=== PATIENT | female | born 1935 | race Caucasian/White ===

== ENCOUNTER 2020-03-22 14:26 | Inpatient (IN) | payer MEDICAID, MEDICARE, SELFPAY ==
[~2020-03-22] VITALS: Ht 167.6 cm; Wt 49.0 kg
[2020-03-22 14:31] VITALS: BP_SYST 105
[2020-03-22] MEDS ORDERED: NACL 0.9% 1,000 ML IV ONE ×2 (15:00→17:15)
[2020-03-22] MEDS ORDERED: AMIODARONE HCL 150 MG in D5W 97 ML IV ONE (15:00)
--- NOTE | 2020-03-22 15:00 | NUR ---
PATIENT TO ER #8 NEGATIVE PRESSURE ROOM AND ISOLATION
[2020-03-22] MEDS ORDERED: AMIODARONE HCL 150 MG/3ML VIAL ONE (15:27)
--- NOTE | 2020-03-22 15:28 | NUR ---
PATIENT TO ER #6 ON MENTAL HEALTH ASSOCIATE, SAO2, ABP; IV LINE #1 #22, RIGHT HAND, IV LINE #2 #20 LAC; RESTRAINTS APPLIED PATIENT WAS UNCOOPERATIVE WITH CARE, (PULLING IV LINE AND REMOVING MASK)
--- NOTE | 2020-03-22 15:31 | NUR ---
PATIENT PRESENTS TO THE ER WITH HX OF INCREASED CONFUSION, LOWER SAO2 AND COUGH TODAY; NO TRAUMA, NO OTHER REMARKABLE S/S; PATIENT HAS TESTED POSITIVE FOR COVID-19
[2020-03-22] MEDS ORDERED: AMIODARONE HCL 900 MG in D5W 482 ML IV ONE (15:45)
--- NOTE | 2020-03-22 15:50 | NUR ---
REASSESSMENT; HR REMAINS ELEVATED AFTER INFUSION; ERMD ADVISED; PATIENT OTHERWISE UNCHANGED
[2020-03-22] MEDS ORDERED: DILTIAZEM HCL 25 MG/5 ML VIAL IVP ONE (16:00)
--- NOTE | 2020-03-22 16:03 | NUR ---
MARGINAL IMPROVEMENT IN HR POST CARTIZEM, ERMAzalea ADVISED
[2020-03-22 16:13] LABS: BASOPHILS % (AUTO) 0.4 % (0.0-2.0); HEMATOCRIT 38.1 % (36-48); HEMOGLOBIN 12.3 g/dL (12.0-16.0); LYMPHOCYTES # (AUTO) 0.8 K/uL (1.0-5.5); LYMPHOCYTES % (AUTO) 6.2 % (20.5-51.5); MEAN CORPUSCULAR HEMOGLOBIN 32 pg (27-31); MEAN CORPUSCULAR HGB CONC 32 % (32-36); MEAN CORPUSCULAR VOLUME 100 fL (79.0-98.0); MONOCYTES # (AUTO) 0.9 K/uL (0.0-1.0); MONOCYTES % (AUTO) 6.6 % (1.7-9.3); NEUTROPHILS # (AUTO) 11.7 K/uL (1.8-7.7); NEUTROPHILS % (AUTO) 86.8 % (40.0-70.0); PLATELET COUNT (AUTO) 126 K/uL (130-430); RED BLOOD CELL COUNT(AUTO) 3.83 MIL/uL (4.2-6.2); RED CELL DISTRIBUTION WIDTH 13.7 % (9.0-15.0); WHITE BLOOD COUNT (AUTO) 13.5 K/uL (4.8-10.8)
[2020-03-22] MEDS ORDERED: AMIODARONE HCL 900 MG/18 ML VIAL IV ONE (16:25)
--- NOTE | 2020-03-22 16:43 | NUR ---
UNCHANGED; DISPOSITION TO ICU PENDING
[2020-03-22 17:02] LABS: ANION GAP 13 (5-15); CALCIUM 7.5 mg/dL (8.4-11.0); CHLORIDE 111 mmol/L (98-107); GLUCOSE 209 mg/dL (70-99); POTASSIUM 4.6 mmol/L (3.5-5.1); SODIUM SERUM 147 mmol/L (136-145)
[2020-03-22 17:07] LABS: ALANINE AMINOTRANSFERASE 91 U/L (12-78); ALBUMIN 2.1 g/dL (3.4-4.8); ASPARTATE AMINOTRANSFERASE 80 U/L (10-37); LACTATE DEHYDROGENASE 385 U/L (81-234); TOTAL BILIRUBIN 0.8 mg/dL (0.0-1.0)
[2020-03-22 17:09] LABS: UREA NITROGEN, BLOOD 115 mg/dL (8-21)
[2020-03-22] MEDS ORDERED: LEVOFLOXACIN 500 MG/D5W 100 ML IV ONE (17:15)
[2020-03-22 17:22] LABS: C-REACTIVE PROTEIN QUANT 14.5 mg/dL (0-0.5)
--- NOTE | 2020-03-22 19:09 | NUR ---
REASSESSMENT; PATIENT REMAINS SEDATE WITH IMPROVED HR; DISPOSITION TO ICU PENDING; OTHERWISE UNCHANGED
[2020-03-22] MEDS ORDERED: *HEPARIN PER PHARMACY XX ONE ×2 (19:45→21:00)
--- NOTE | 2020-03-22 19:45 | NUR ---
MICHELLE TO ASSUME CARE, CALM, RESP TACHYPNEIC/INCREASED WORK OF BREATHING SAO2 97% ON 15 LITER NON-REBREATHER. PULSES PALPABLE SOFT RESTRAINTS BILATERALLY. A-FIB RVR @ 150 BPM. AMIO DRIP @ 33.3ML/HR T=97.4
[2020-03-22] MEDS ORDERED: LEVOFLOXACIN 500 MG/D5W 100 ML IV SCH (20:00)
[2020-03-22 20:14] LABS: INR 1.3 (0.8-1.2); PROTHROMBIN TIME 12.5 SECS (9.5-12.5)
[2020-03-22] MEDS ORDERED: HEPARIN SODIUM,PORCINE 3000 UNITS/0.6 ML BOLUS IVP PRN (20:15)
[2020-03-22] MEDS ORDERED: ETOMIDATE 20 MG/ 10 ML VIAL (AMIDATE) IVP ONE (20:15)
[2020-03-22] MEDS ORDERED: HEPARIN SODIUM,PORCINE 2000 UNITS/0.4 ML BOLUS IVP PRN (20:15)
--- NOTE | 2020-03-22 20:15 | NUR ---
INTUBATION OF PATIENT IN PROGRESS
[2020-03-22] MEDS ORDERED: HEPARIN SODIUM,PORCINE 5000 UNITS/ML VIAL IV ONE (20:30)
--- NOTE | 2020-03-22 20:47 | NUR ---
TOLERATED INTUBATION WELL. RODRIGUE VIGIL. IN TO ASSESS.
[2020-03-22] MEDS ORDERED: ACETAMINOPHEN 650 MG/20.3 ML UDC PO PRN (21:00)
[2020-03-22] MEDS ORDERED: ALBUTEROL SULFATE 0.083% 2.5 MG/3 ML VIAL.NEB INH PRN (21:00)
[2020-03-22] MEDS ORDERED: IPRATROPIUM BROM 0.5 MG/2.5 ML VIAL.NEB (ATROVENT) INH PRN (21:00)
--- NOTE | 2020-03-22 21:02 | NUR ---
RT AT BEDSIDE TO ADJUST ETT.
[2020-03-22 21:15] VITALS: BP_SYST 110
--- NOTE | 2020-03-22 21:15 | NUR ---
ADMISSION NOTE PT RECEIVED VIA GURNEY FROM ER AT THIS TIME. PT AWAKE AND RESTLESS. VSS, NO S/S OF ACUTE DISTRESS NOTED. PT INTUBATED, VENT SETTINGS AC 12, TV 400, FIO2 60%, PEEP 5. A-FIB ON MONITOR. R HAND 22G AND LAC 20G PATENT AND INTACT. HOB ELEVATED, BED IN LOWEST POSITION, CALL LIGHT IN REACH. WILL CONTINUE TO MONITOR PT.
--- NOTE | 2020-03-22 21:33 | NUR ---
TRANSPORTED TO ICU 8 WITHOUT INCIDENT. ACLS WITH RT X2 VIA GURNEY. NO CHNAGE IN CONDITION REPORT TO LADONNA AT BEDSIDE
[2020-03-22 22:00] VITALS: BP_SYST 116
[2020-03-22] MEDS ORDERED: PROPOFOL DRIP 100 ML IV ONE (22:46)
[2020-03-22 23:00] VITALS: BP_SYST 135
--- NOTE | 2020-03-22 23:00 | NUR ---
VENT CHANGES FIO2 DECREASED TO 50% BY RT PER ORDERS BY DR. BALL. WILL CONTINUE TO MONITOR PT.
[2020-03-22 23:11] VITALS: BP_SYST 102
--- NOTE | 2020-03-22 23:30 | NUR ---
GEORGE CATH: # 16 FR George catheter with 10 cc bulb inserted with use of sterile technique. Bulb inflated with 10 cc sterile water. Immediate return of 100 cc YELLOW urine noted. Bedside drainage bag placed below level of bladder. Pt tolerated procedure WELL.
--- NOTE | 2020-03-22 23:45 | NUR ---
OGT TUBE PLACEMENT: # 16 FR OGT tube placed. Placement checked by auscultation of instilled air into stomach and aspiration of gastric contents. Tubing taped in place to prevent dislodging. Patient tolerated WELL.
[2020-03-22 23:52] VITALS: BP_SYST 110
[2020-03-23] VITALS (35 sets, daily range): BP systolic 65–143
[2020-03-23] MEDS: methylPREDNISolone SOD SUCC/PF 62.5 MG/ML VIAL IVP SCH ×4 (00:26→21:55)
[2020-03-23] MEDS: FAMOTIDINE PF 20 MG/2 ML VIAL IVP SCH ×2 (00:27→21:57)
[2020-03-23] MEDS: PANTOPRAZOLE SODIUM 40 MG/VIAL (PROTONIX) IVP SCH ×3 (00:27→21:55)
[2020-03-23] MEDS: HEPARIN 25,000 UNITS in 250 ML PREMIX IV PRN (00:28)
[2020-03-23] MEDS: PROPOFOL DRIP 100 ML IV PRN ×2 (00:30→08:17)
[2020-03-23] MEDS: NACL 0.9% 1,000 ML IV SCH ×3 (00:32→16:26)
[2020-03-23] MEDS: AMIODARONE HCL 900 MG in D5W 482 ML IV SCH ×2 (00:34→16:37)
--- NOTE | 2020-03-23 04:25 | NUR ---
DR. Azalea GOOD MD AT BEDSIDE TO EVALUATE PT. ORDERS RECEIVED AND WILL BE CARRIED OUT ORDERED.
--- NOTE | 2020-03-23 05:08 | NUR ---
CONSULT DR. JACE LUNDBERG [phone] SPOKE WITH MILAGRO
[2020-03-23] MEDS ORDERED: AZITHROMYCIN 500 MG in NS 250 ML IV ONE (05:30)
[2020-03-23] MEDS: CEFEPIME 1 GM in D5W 50 ML IV SCH (06:15)
[2020-03-23 06:21] LABS: BASOPHILS % (AUTO) 0.2 % (0.0-2.0); HEMATOCRIT 32.6 % (36-48); LYMPHOCYTES # (AUTO) 0.6 K/uL (1.0-5.5); MEAN CORPUSCULAR HEMOGLOBIN 33 pg (27-31); MEAN CORPUSCULAR HGB CONC 34 % (32-36); MEAN CORPUSCULAR VOLUME 98 fL (79.0-98.0); MONOCYTES # (AUTO) 0.3 K/uL (0.0-1.0); MONOCYTES % (AUTO) 3.5 % (1.7-9.3); NEUTROPHILS % (AUTO) 90.3 % (40.0-70.0); PLATELET COUNT (AUTO) 126 K/uL (130-430); RED BLOOD CELL COUNT(AUTO) 3.32 MIL/uL (4.2-6.2); RED CELL DISTRIBUTION WIDTH 13.9 % (9.0-15.0); WHITE BLOOD COUNT (AUTO) 9.9 K/uL (4.8-10.8)
[2020-03-23] MEDS ORDERED: CEFEPIME 1 GM/VIAL (MAXIPIME) ONE (06:21)
[2020-03-23] MEDS ORDERED: AZITHROMYCIN 500 MG/VIAL (ZITHROMAX) IV ONE (06:24)
--- NOTE | 2020-03-23 07:15 | NUR ---
Opening Note Received bedside report from endorsing RN for continuation of care. Patient on isolation precautions for covid-19. Patient sedated and intubated, no signs or symptoms of acute distress noted. Bed locked in lowest position and bed alarm on. Fall and safety precautions in place.
[2020-03-23 07:42] LABS: ANION GAP 13 (5-15); CHLORIDE 115 mmol/L (98-107); GLUCOSE 222 mg/dL (70-99); POTASSIUM 4.2 mmol/L (3.5-5.1); SODIUM SERUM 149 mmol/L (136-145)
[2020-03-23 07:44] LABS: CALCIUM 6.8 mg/dL (8.4-11.0); CREATININE 1.74 mg/dL (0.55-1.30); TOTAL BILIRUBIN 0.7 mg/dL (0.0-1.0); UREA NITROGEN, BLOOD 100 mg/dL (8-21)
[2020-03-23 07:45] LABS: ALANINE AMINOTRANSFERASE 73 U/L (12-78); ALBUMIN 1.9 g/dL (3.4-4.8); ASPARTATE AMINOTRANSFERASE 66 U/L (10-37)
[2020-03-23 08:05] LABS: PHOSPHORUS 4.1 mg/dL (2.7-4.5)
--- NOTE | 2020-03-23 08:06 | NUR ---
Dr. Jones at bedside examining patient. New orders received.
[2020-03-23] MEDS ORDERED: CALCIUM GLUCONATE 1 GM in NS 100 ML IV ONE (08:15)
[2020-03-23] MEDS: HYDROXYCHLOROQUINE SULFATE 200 MG TABLET PO SCH ×2 (08:15→21:55)
[2020-03-23] MEDS ORDERED: NACL 0.9% 1,000 ML IV ONE (08:30)
--- NOTE | 2020-03-23 08:35 | NUR ---
Dr. De La O at bedside examining patient. New orders received.
--- NOTE | 2020-03-23 09:06 | NUR ---
Nutrition Update Farzad Scale 13 noted. Pt admitted for respiratory failure Diet: Vital AF 1.2 at 10ml/hr, 50cc free water flush Q4h BMI: 17.6 kg/m2 RD to follow per nutrition care standards.
--- NOTE | 2020-03-23 09:19 | NUR ---
Dr. Escamilla in to see patient. No new orders.
--- NOTE | 2020-03-23 10:20 | NUR ---
RT NOTES 1020 TITRATED FIO2 T0 40%, PER ABG RESULTS. PT SAT 94-95%. RN JESUS AWARE, NO DISTRESS NOTED. WILL CONTINUE TO MONITOR PT.
[2020-03-23] MEDS: LEVOFLOXACIN 250 MG/D5W 50 ML IV SCH (10:59)
--- NOTE | 2020-03-23 12:23 | NUR ---
PICC Line Insertion PICC Line insertion being done at bedside by PICC Line RN Lobito.
[2020-03-23] MEDS ORDERED: SENN-278 (13:48)
[2020-03-23] MEDS ORDERED: ACET-2165 PO (13:48)
[2020-03-23] MEDS ORDERED: OMEP20CA11 PO (13:48)
[2020-03-23] MEDS ORDERED: BETA1TAB20 PO (13:48)
[2020-03-23] MEDS ORDERED: VITD400 PO (13:48)
[2020-03-23] MEDS ORDERED: DOCU-144 PO (13:48)
[2020-03-23] MEDS ORDERED: MOM PO (13:48)
[2020-03-23] MEDS ORDERED: ALUM1POW3 MC (13:48)
[2020-03-23] MEDS ORDERED: DEXT30DR6 EACH EYE (13:48)
[2020-03-23] MEDS: LINEZOLID 300 ML IV SCH ×2 (14:25→21:56)
--- NOTE | 2020-03-23 15:36 | NUR ---
Spoke with patient's niece on the phone regarding patient status. Updated on plan of care, education provided, and all questions answered clearly.
--- NOTE | 2020-03-23 17:56 | NUR ---
Spoke with Dr. Yoon regarding Amiodarone Drip. Per Dr. Yoon, continue with Amiodarone drip until tomorrow morning.
[2020-03-23] MEDS ORDERED: COMMUNICATION ORDER XX ONE (18:00)
[2020-03-23] MEDS: NOREPINEPHRINE BITARTRATE 8 MG in NS 242 ML IV PRN (18:25)
--- NOTE | 2020-03-23 19:10 | NUR ---
OPENING NOTE SBAR REPORT RECEIVED FROM SANDEEP SLAUGHTER. CARE ASSUMED. PT LAYING IN BED. PT ANOX1. PT ON 2L NC. O2 SATURATION 98%. PT COVID (+). ISOLATION PRECAUTIONS IMPLEMENTED. PT SINUS RHYTHM ON MONITOR. PT HAS RUE PICC LINE RUNNING HEPARIN @ 500 UNITS/HR, DIPRIVAN @ 15 MCG/MIN, AND LEVOPHED @ 8 MCG/MIN. PT HAS 22G TO RIGHT WRIST RUNNING NS @ 125 ML/HR. PT HAS 20G TO LEFT AC RUNNING AMIODARONE @ 0.5 MG/MIN. RADIAL AND PEDAL PULSES NORMAL. ABDOMEN SOFT NON DISTENDED. OG TUBE RUNNING VITAL AF @ 10 ML/HR. GEORGE CATHETER IN PLACE DRAINING TO GRAVITY. URINE YELLOW AND CLOUDY. PT HAS SACRAL WOUND AND MID BACK ECCHYMOSIS PRESENT. BED LOCKED IN LOWEST POSITION. SAFETY PRECAUTIONS IN PLACE. CALL LIGHT WITHIN REACH. WILL CONTINUE TO MONITOR. Addendum: 03/24/20 at 0835 by Fabiola Patel RN SBAR REPORT RECEIVED FROM JESUS SLAUGHTER NOT SANDEEP SLAUGHTER.
--- NOTE | 2020-03-23 19:30 | NUR ---
Endorsement Endorsed bedside report to oncoming RN using SBAR approach for continuation of care.
[2020-03-24] VITALS (35 sets, daily range): BP systolic 95–137
[2020-03-24] MEDS: NACL 0.9% 1,000 ML IV SCH ×4 (01:30→22:54)
[2020-03-24] MEDS: PROPOFOL DRIP 100 ML IV PRN ×2 (03:08→22:56)
[2020-03-24 05:49] LABS: BASOPHILS # (AUTO) 0.1 K/uL (0.0-0.2); BASOPHILS % (AUTO) 0.4 % (0.0-2.0); EOSINOPHILS % (AUTO) 0.2 % (0.0-4.0); HEMOGLOBIN 9.8 g/dL (12.0-16.0); LYMPHOCYTES # (AUTO) 1.1 K/uL (1.0-5.5); LYMPHOCYTES % (AUTO) 6.5 % (20.5-51.5); MEAN CORPUSCULAR HEMOGLOBIN 33 pg (27-31); MEAN CORPUSCULAR HGB CONC 33 % (32-36); MEAN CORPUSCULAR VOLUME 101 fL (79.0-98.0); MONOCYTES % (AUTO) 5.7 % (1.7-9.3); NEUTROPHILS # (AUTO) 15.2 K/uL (1.8-7.7); NEUTROPHILS % (AUTO) 87.2 % (40.0-70.0); PLATELET COUNT (AUTO) 169 K/uL (130-430); RED BLOOD CELL COUNT(AUTO) 2.98 MIL/uL (4.2-6.2); RED CELL DISTRIBUTION WIDTH 14.4 % (9.0-15.0); WHITE BLOOD COUNT (AUTO) 17.4 K/uL (4.8-10.8)
[2020-03-24] MEDS: methylPREDNISolone SOD SUCC/PF 62.5 MG/ML VIAL IVP SCH ×3 (05:57→22:53)
[2020-03-24] MEDS: CEFEPIME 1 GM in D5W 50 ML IV SCH (05:58)
--- NOTE | 2020-03-24 06:00 | NUR ---
DRAKE I luis m Tavarez RN increase Diprivan rate to 20 MCG/Kg/Min.
--- NOTE | 2020-03-24 07:00 | NUR ---
DRAKE I luis m Tavarez RN increase Diprivan rate to 25 MCG/Kg/Min.
[2020-03-24 07:19] LABS: SODIUM SERUM 147 mmol/L (136-145)
[2020-03-24 07:22] LABS: CALCIUM 6.5 mg/dL (8.4-11.0)
[2020-03-24 07:23] LABS: LIPASE 66 U/L (73-393)
--- NOTE | 2020-03-24 07:25 | NUR ---
Received patient and report from NOC shift. Side rails x 3. Call light with in reach. In no acute distress.
[2020-03-24 07:42] LABS: ANION GAP 10 (5-15); CHLORIDE 114 mmol/L (98-107); CREATININE 1.61 mg/dL (0.55-1.30); GLUCOSE 298 mg/dL (70-99); POTASSIUM 3.9 mmol/L (3.5-5.1); TOTAL BILIRUBIN 0.6 mg/dL (0.0-1.0); UREA NITROGEN, BLOOD 84 mg/dL (8-21)
[2020-03-24 07:43] LABS: ALANINE AMINOTRANSFERASE 63 U/L (12-78); ALBUMIN 1.7 g/dL (3.4-4.8); ASPARTATE AMINOTRANSFERASE 45 U/L (10-37)
--- NOTE | 2020-03-24 07:45 | NUR ---
CLOSING NOTE PT LAYING IN BED.PT HAS RUE PICC LINE RUNNING HEPARIN @ 300 UNITS/HR, DIPRIVAN @ 25 MCG/MIN, AND LEVOPHED @ 4 MCG/MIN. PT HAS 22G TO RIGHT WRIST RUNNING NS @ 125 ML/HR. PT HAS 20G TO LEFT AC RUNNING AMIODARONE @ 0.5 MG/MIN. NO SIGNS OR SYMPTOMS OF DISTRESS NOTED. SBAR REPORT GIVEN TO FREDO SLAUGHTER. CARE ENDORSED.
--- NOTE | 2020-03-24 08:00 | NUR ---
Informed MD De La O at bedside troponin 0.306, calcium 6.5 from labs collected at 0535. Md De La O stated will place orders.
[2020-03-24] MEDS ORDERED: NS 500 ML IV ONE (08:15)
--- NOTE | 2020-03-24 08:30 | NUR ---
Levophed decreased to 2 mcg per MD De La O order to discontinue levophed. Blood pressure stable.
[2020-03-24] MEDS: LINEZOLID 300 ML IV SCH ×2 (08:56→21:03)
[2020-03-24] MEDS: AZITHROMYCIN 250 MG in NS 250 ML IV SCH (08:56)
[2020-03-24] MEDS: LEVOFLOXACIN 250 MG/D5W 50 ML IV SCH (08:56)
[2020-03-24] MEDS: HYDROXYCHLOROQUINE SULFATE 200 MG TABLET PO SCH ×2 (08:57→20:28)
[2020-03-24] MEDS: PANTOPRAZOLE SODIUM 40 MG/VIAL (PROTONIX) IVP SCH ×2 (08:57→21:04)
--- NOTE | 2020-03-24 09:00 | NUR ---
Levophed IV drip stopped. Blood pressure stable.
[2020-03-24] MEDS ORDERED: AMIODARONE HCL 200 MG TABLET PO ONE (09:15)
[2020-03-24] MEDS: ALBUMIN HUMAN 25% 50 ML IV SCH ×3 (10:53→17:32)
[2020-03-24 11:26] LABS: THYROID STIMULATING HORMONE 0.23 uIu/mL (0.34-4.82)
--- NOTE | 2020-03-24 12:00 | NUR ---
Amiodarone drip stopped. Restraints discontinued.
[2020-03-24] MEDS ORDERED: CALCIUM GLUCONATE 1 GM in NS 100 ML IV ONE (13:00)
[2020-03-24] MEDS: AMIODARONE HCL 200 MG TABLET NG SCH ×2 (13:12→22:54)
--- NOTE | 2020-03-24 17:00 | NUR ---
Diprivan drip increased to 30 mcg.
--- NOTE | 2020-03-24 18:55 | NUR ---
Dietitian Recommendations * Recommend continue TF Vital AF 1.2 at 10 ml/hr via OGT. Current TF regimen provides 288 kcals and 18 g protein, meeting 21% of estimated calorie needs and 45% of lower end of estimated protein needs. * Consider gradually increase TF Vital AF 1.2 to goal rate of 25 ml/hr if/when medically applicable. TF Vital AF 1.2 at 25 ml/hr will provide 720 kcal and 45 g protein, meeting 52% of estimated lower end of caloric needs and 100% estimated protein needs. Please see Nutrition Assessment for details. EP,RD
--- NOTE | 2020-03-24 19:25 | NUR ---
Endorsed patient and gave report to NOC shift nurse. Side rails x 3. Call light with in reach. In no acute distress.
--- NOTE | 2020-03-24 19:26 | NUR ---
REPORT OBTAINED FROM DAY SHIFT NURSE. PT IS LYING IN BED LETHARGIC. PT IS INTUBATED AND CONNECTED TO VENT WITH SETTINGS OF AC 14, TV 350, FIO2 40% AND PEEP 5. PT IS TOLERATING VENT SETTINGS WELL WITH O2 SAT OF 100%. IVF OF NS IS INFUSING WELL VIA GERSON PICC AT 125ML/HR. DIPRIVAN DRIP ALSO INFUSING VIA GERSON PICC AT 30MCG/KG/MIN. HEPARIN DRIP IS INFUSING WELL VIA GERSON PICC AT 300 UNITS/HR. VITAL AF 1.2 IN INFUSING VIA OG TUBE AT 10ML/HR WITH 0ML RESIDUAL. OG PLACEMENT VERIFIED. GEORGE CATH TO GRAVITY DRAINAGE IS DRAINING YELLOWISH URINE. FALL, DROPLET ISOLATION AND SAFETY PRECAUTIONS ARE IN PLACE.
--- NOTE | 2020-03-24 21:00 | NUR ---
CONDITION REMAINS STABLE. PLAQUENIL HELD DUE TO QTC PROLONGED MORE THAN 470MS AND PT IS ALSO ON AZITHROMYCIN.
[2020-03-24] MEDS: FAMOTIDINE PF 20 MG/2 ML VIAL IVP SCH (21:03)
[2020-03-25] VITALS (38 sets, daily range): BP systolic 83–154
--- NOTE | 2020-03-25 01:12 | NUR ---
PAGED DR. MCCORMICK FOR ORDERS DIALED: [phone] SPOKE TO: VICE PRESIDENT [employer] ( TRANSFERRED BEFORE GIVEN NAME)
[2020-03-25] MEDS: NOREPINEPHRINE BITARTRATE 8 MG in NS 242 ML IV PRN ×2 (01:35→08:00)
--- NOTE | 2020-03-25 01:35 | NUR ---
SPOKE WITH DR. MCCORMICK REGARDING LOW BPS. LEVOPHED DRIP RESTARTED AT 2MCG/MIN AND TUBE FEEDING INCREASED FROM 10ML/HR TO 30ML/HR ORDERED BY DR. MCCORMICK.
--- NOTE | 2020-03-25 02:02 | NUR ---
BP STILL LOW AT 85/41. LEVOPHED INCREASED TO 4MCG/MIN.
[2020-03-25] MEDS ORDERED: NOREPINEPHRINE 4 MG/4 ML VIAL IV ONE (02:17)
--- NOTE | 2020-03-25 04:30 | NUR ---
CHG BATH GIVEN, INCLUDING ORAL AND GEORGE CATH CARE. PT IS TOLERATING TUBE FEEDING AND VENT SETTINGS WELL.
[2020-03-25] MEDS: CEFEPIME 1 GM in D5W 50 ML IV SCH (05:31)
[2020-03-25] MEDS: AMIODARONE HCL 200 MG TABLET NG SCH ×3 (05:57→22:07)
[2020-03-25] MEDS: methylPREDNISolone SOD SUCC/PF 62.5 MG/ML VIAL IVP SCH ×3 (05:57→21:38)
--- NOTE | 2020-03-25 06:30 | NUR ---
CONDITION STABLE AT THIS TIME. PT IS TOLERATING VENT SETTINGS AND TUBE FEEDING WELL. IVF OF NS IS INFUSING WELL VIA GERSON PICC. DIPRIVAN, HEPARIN AND LEVOPHED DRIPS ARE ALSO INFUSING WELL VIA GERSON PICC. NO EVIDENCE OF ACTIVE BLEEDING NOTED. FALL, DROPLET ISOLATION AND SAFETY PRECAUTIONS ARE IN PLACE. WILL ENDORSE TO DAY SHIFT NURSE.
[2020-03-25] MEDS: PROPOFOL DRIP 100 ML IV PRN ×2 (08:00→19:56)
--- NOTE | 2020-03-25 08:00 | NUR ---
PT IS LYING IN BED SEDATED BY DIPRIVAN AT 30MCG. INTUBATED, WITH VENT SETTINGS OF AC 14, TV 350, FIO2 40% AND PEEP 5. PT IS TOLERATING VENT SETTINGS WELL WITH O2 SAT OF 96%. IVF OF NS IS INFUSING WELL VIA GERSON PICC AT 125ML/HR. HEPARIN DRIP IS INFUSING WELL VIA GERSON PICC AT 300 UNITS/HR. VITAL AF 1.2 IN INFUSING VIA OG TUBE AT 30ML/HR WITH 0ML RESIDUAL. OG PLACEMENT VERIFIED BY AUSCULTATION. GEORGE CATH DRAINING YELLOWISH URINE. CALL LIGHT IN PLACE, BED LOCKED AT THE LOWEST POSITION; FALL, DROPLET ISOLATION AND SAFETY PRECAUTIONS ARE IN PLACE
--- NOTE | 2020-03-25 08:00 | NUR ---
LEVOPHED TITRATED DOWN TO 2MCG
[2020-03-25] MEDS: PANTOPRAZOLE SODIUM 40 MG/VIAL (PROTONIX) IVP SCH ×2 (08:04→20:38)
[2020-03-25] MEDS: NACL 0.9% 1,000 ML IV SCH (08:05)
[2020-03-25] MEDS: LEVOFLOXACIN 250 MG/D5W 50 ML IV SCH (08:08)
[2020-03-25] MEDS: AZITHROMYCIN 250 MG in NS 250 ML IV SCH (09:00)
[2020-03-25] MEDS: HYDROXYCHLOROQUINE SULFATE 200 MG TABLET PO SCH ×2 (09:00→20:39)
[2020-03-25] MEDS: LINEZOLID 300 ML IV SCH ×2 (10:18→20:39)
--- NOTE | 2020-03-25 10:20 | NUR ---
PATIENT IS AT REST; TURNED AND REPOSITIONED FOR COMFORT.
[2020-03-25] MEDS: HEPARIN 25,000 UNITS in 250 ML PREMIX IV PRN ×2 (10:32→19:40)
[2020-03-25] MEDS ORDERED: ALBUMIN HUMAN 25% 50 ML IV ONE (11:45)
[2020-03-25] MEDS ORDERED: CALCIUM CHLORIDE 1 GM in NS 100 ML IV ONE (12:00)
--- NOTE | 2020-03-25 12:10 | NUR ---
DR. MCCORMICK IS AT BEDSIDE AND CURRENT CLINICAL CONDITION IS INFORMED.
[2020-03-25] MEDS ORDERED: ASCORBIC ACID 500 MG TABLET PO ONE (13:15)
[2020-03-25] MEDS ORDERED: CALCIUM CARBONATE 500 MG/ TAB.CHEW NG ONE (13:30)
[2020-03-25] MEDS: KCL 20 mEq in D5/0.45NS 1000mL 1,000 ML IV SCH (13:45)
--- NOTE | 2020-03-25 14:05 | NUR ---
carl is held; Dr. Quick is informed, and he agrees with the decision due to recent episode of a-fib
--- NOTE | 2020-03-25 14:05 | NUR ---
DR. HEIN IS AT BEDSIDE. PATIENT'S CURRENT CONDITION IS UPDATED.
[2020-03-25] MEDS: ERGOCALCIFEROL 8000 UNITS/ML ORAL SOLUTION, 60 ML BOTTLE GT SCH (14:30)
--- NOTE | 2020-03-25 16:18 | NUR ---
PATIENT HAD A BM. WOUND CARE AND CLEANING IS PROVIDED
--- NOTE | 2020-03-25 18:20 | NUR ---
PATIENT IS PROVIDED WITH ORAL CARE.
--- NOTE | 2020-03-25 19:30 | NUR ---
Received report from AM nurse using SBAR approach.
--- NOTE | 2020-03-25 20:30 | NUR ---
PTT is 54.0. Orders to draw ptt daily. Keep heparin drip at current dose.
[2020-03-25] MEDS: FAMOTIDINE PF 20 MG/2 ML VIAL IVP SCH (20:38)
[2020-03-25] MEDS: CALCIUM CARBONATE 500 MG/ TAB.CHEW NG SCH (20:38)
--- NOTE | 2020-03-25 20:45 | NUR ---
PM assessment Patient sedated. patient on vent. Tolerating current vent settings. Rivera catheter is draining on gravity. Changed and cleaned patient. Changed linens. No signs of distress. Safety precautions in place. Bed locked in lowest position.
[2020-03-26] VITALS (34 sets, daily range): BP systolic 90–159
[2020-03-26] MEDS: KCL 20 mEq in D5/0.45NS 1000mL 1,000 ML IV SCH ×3 (03:16→15:24)
[2020-03-26] MEDS: PROPOFOL DRIP 100 ML IV PRN (05:46)
[2020-03-26] MEDS: methylPREDNISolone SOD SUCC/PF 62.5 MG/ML VIAL IVP SCH ×3 (05:47→21:49)
[2020-03-26] MEDS: CEFEPIME 1 GM in D5W 50 ML IV SCH (05:47)
[2020-03-26] MEDS: AMIODARONE HCL 200 MG TABLET NG SCH ×3 (05:49→21:49)
[2020-03-26 06:28] LABS: BASOPHILS % (AUTO) 0.2 % (0.0-2.0); HEMATOCRIT 28.7 % (36-48); HEMOGLOBIN 9.1 g/dL (12.0-16.0); LYMPHOCYTES # (AUTO) 1.2 K/uL (1.0-5.5); LYMPHOCYTES % (AUTO) 7.9 % (20.5-51.5); MEAN CORPUSCULAR HEMOGLOBIN 33 pg (27-31); MEAN CORPUSCULAR HGB CONC 32 % (32-36); MEAN CORPUSCULAR VOLUME 102 fL (79.0-98.0); MONOCYTES # (AUTO) 0.5 K/uL (0.0-1.0); MONOCYTES % (AUTO) 3.5 % (1.7-9.3); NEUTROPHILS # (AUTO) 13.6 K/uL (1.8-7.7); PLATELET COUNT (AUTO) 193 K/uL (130-430); RED BLOOD CELL COUNT(AUTO) 2.81 MIL/uL (4.2-6.2); WHITE BLOOD COUNT (AUTO) 15.4 K/uL (4.8-10.8)
[2020-03-26 06:49] LABS: ALANINE AMINOTRANSFERASE 47 U/L (12-78); ALBUMIN 2.2 g/dL (3.4-4.8); ASPARTATE AMINOTRANSFERASE 32 U/L (10-37); CALCIUM 7.7 mg/dL (8.4-11.0); CHLORIDE 113 mmol/L (98-107); CREATININE 1.37 mg/dL (0.55-1.30); POTASSIUM 4.5 mmol/L (3.5-5.1); SODIUM SERUM 143 mmol/L (136-145); TOTAL BILIRUBIN 0.6 mg/dL (0.0-1.0); UREA NITROGEN, BLOOD 63 mg/dL (8-21)
--- NOTE | 2020-03-26 07:28 | NUR ---
ENDORSEMENT Pt care endorsed to KASANDRA Bloom using nursing SBAR.
--- NOTE | 2020-03-26 07:30 | NUR ---
Opening Note Patient report received via SBAR from endorsing RN
[2020-03-26 07:38] LABS: ANION GAP 10 (5-15); GLUCOSE 400 mg/dL (70-99)
--- NOTE | 2020-03-26 08:00 | NUR ---
Nursing Note Patient was repositioned in bed and pulled up, AM medications administered, oral care given. Patient tolerated well
--- NOTE | 2020-03-26 08:15 | NUR ---
Round Dr. Jones in to see patient, physician informed about patient labs. New orders entered
[2020-03-26] MEDS: LINEZOLID 300 ML IV SCH ×2 (08:26→21:53)
[2020-03-26] MEDS: DOXYCYCLINE HYCLATE 100 MG in D5W 100 ML IV SCH ×2 (08:26→20:56)
[2020-03-26] MEDS: CALCIUM CARBONATE 500 MG/ TAB.CHEW NG SCH ×2 (08:27→21:48)
[2020-03-26] MEDS: PANTOPRAZOLE SODIUM 40 MG/VIAL (PROTONIX) IVP SCH ×2 (08:27→21:48)
[2020-03-26] MEDS: ASCORBIC ACID 500 MG TABLET PO SCH (08:27)
--- NOTE | 2020-03-26 08:30 | NUR ---
Round Dr. De La O in to see patient, no new orders
[2020-03-26] MEDS: ERGOCALCIFEROL 8000 UNITS/ML ORAL SOLUTION, 60 ML BOTTLE GT SCH (09:00)
[2020-03-26] MEDS ORDERED: D5W 1,000 ML IV PRN (09:01)
[2020-03-26] MEDS: INSULIN NPH 100 UNITS/ML 10 ML VIAL SUBCUT SCH ×2 (09:15→21:52)
[2020-03-26] MEDS ORDERED: GLUCOSE 15 GM GEL (in 37.5 GM TUBE) PO PRN (09:15)
[2020-03-26] MEDS ORDERED: DEXTROSE 50% JECT 50 ML DISP.SYRIN IVP PRN (09:15)
[2020-03-26] MEDS: INSULIN LISPRO SLIDING SCALE 100 UNITS/ML VIAL (humaLOG) SUBCUT PRN ×4 (12:34→23:57)
[2020-03-26 13:04] LABS: NEUTROPHILS % (AUTO) 88.4 % (40.0-70.0)
--- NOTE | 2020-03-26 13:50 | NUR ---
ROUND Dr. Garcia in to see patient, no new orders
--- NOTE | 2020-03-26 14:00 | NUR ---
Family Call Daughter, Tamara, called and stated that family doesn't want Dialysis for the patient. Dr. Garcia had spoken to family when she was in to see the patient. Addendum: 03/26/20 at 2052 by Jim Barone RN Entered in error
--- NOTE | 2020-03-26 16:00 | NUR ---
Nursing Note Patient repositioned in bed, wound care performed, patient cleaned and linens changed. Central line dressing changed using sterile technique. Addendum: 03/26/20 at 2053 by Jim Barone RN Dressing change was not performed, entered in error
--- NOTE | 2020-03-26 18:00 | NUR ---
Nursing Note Patient's O2 saturation at mid to high 80s. RT was called and FiO2 was increased to 60%. Patient's saturation above 90%.
--- NOTE | 2020-03-26 19:25 | NUR ---
Closing Note Patient report given to nightshift RN via SBAR
[2020-03-26] MEDS: FAMOTIDINE PF 20 MG/2 ML VIAL IVP SCH (21:48)
--- NOTE | 2020-03-26 23:15 | NUR ---
RT NOTES 2315 PT SAT STAYED AT 87-88%, INCREASED FIO2 TO 80%, PT SATURATION 95%, NO RESP DISTRESS NOTED. RN KAVON AWARE. WILL MONITOR PT. WILL FOLLOW-UP TO RN ABOUT TITRATION ORDER.
[2020-03-27] VITALS (33 sets, daily range): BP systolic 78–127
[2020-03-27] MEDS: INSULIN LISPRO SLIDING SCALE 100 UNITS/ML VIAL (humaLOG) SUBCUT PRN ×3 (02:36→12:06)
[2020-03-27] MEDS: CEFEPIME 1 GM in D5W 50 ML IV SCH (06:28)
[2020-03-27] MEDS: KCL 20 mEq in D5/0.45NS 1000mL 1,000 ML IV SCH (06:28)
[2020-03-27] MEDS: methylPREDNISolone SOD SUCC/PF 62.5 MG/ML VIAL IVP SCH ×3 (06:34→22:00)
[2020-03-27] MEDS: AMIODARONE HCL 200 MG TABLET NG SCH ×3 (06:34→21:38)
[2020-03-27 06:46] LABS: ANION GAP 4 (5-15); CALCIUM 7.3 mg/dL (8.4-11.0); CHLORIDE 112 mmol/L (98-107); CREATININE 1.28 mg/dL (0.55-1.30); GLUCOSE 252 mg/dL (70-99); POTASSIUM 4.7 mmol/L (3.5-5.1); SODIUM SERUM 138 mmol/L (136-145); UREA NITROGEN, BLOOD 58 mg/dL (8-21)
[2020-03-27 07:03] LABS: BASOPHILS # (AUTO) 0.1 K/uL (0.0-0.2); BASOPHILS % (AUTO) 0.5 % (0.0-2.0); EOSINOPHILS # (AUTO) 0.3 K/uL (0.0-0.4); EOSINOPHILS % (AUTO) 1.4 % (0.0-4.0); HEMATOCRIT 25.2 % (36-48); LYMPHOCYTES # (AUTO) 1.8 K/uL (1.0-5.5); LYMPHOCYTES % (AUTO) 9.6 % (20.5-51.5); MEAN CORPUSCULAR HEMOGLOBIN 33 pg (27-31); MEAN CORPUSCULAR HGB CONC 32 % (32-36); MEAN CORPUSCULAR VOLUME 103 fL (79.0-98.0); MONOCYTES # (AUTO) 0.2 K/uL (0.0-1.0); MONOCYTES % (AUTO) 0.9 % (1.7-9.3); NEUTROPHILS # (AUTO) 16.5 K/uL (1.8-7.7); NEUTROPHILS % (AUTO) 87.6 % (40.0-70.0); PLATELET COUNT (AUTO) 227 K/uL (130-430); RED BLOOD CELL COUNT(AUTO) 2.44 MIL/uL (4.2-6.2); RED CELL DISTRIBUTION WIDTH 15.7 % (9.0-15.0); WHITE BLOOD COUNT (AUTO) 18.9 K/uL (4.8-10.8)
--- NOTE | 2020-03-27 07:20 | NUR ---
Received patient and report from [facility] shift nurse. Patient in bed with side rails x 3 up. Call light with in reach. In no acute distress.
--- NOTE | 2020-03-27 07:25 | NUR ---
ENDORSEMENT Pt care endorsed to dayshift RN using nursing SBAR.
[2020-03-27] MEDS: DOXYCYCLINE HYCLATE 100 MG in D5W 100 ML IV SCH ×2 (08:37→20:59)
[2020-03-27] MEDS: LINEZOLID 300 ML IV SCH ×2 (08:37→21:32)
[2020-03-27] MEDS: CALCIUM CARBONATE 500 MG/ TAB.CHEW NG SCH ×2 (08:37→21:31)
[2020-03-27] MEDS: PANTOPRAZOLE SODIUM 40 MG/VIAL (PROTONIX) IVP SCH ×2 (08:38→21:24)
[2020-03-27] MEDS: ASCORBIC ACID 500 MG TABLET PO SCH (08:38)
[2020-03-27] MEDS: 0.45% NACL 1,000 ML IV SCH (08:39)
[2020-03-27] MEDS: INSULIN NPH 100 UNITS/ML 10 ML VIAL SUBCUT SCH ×2 (08:40→21:27)
[2020-03-27] MEDS: ERGOCALCIFEROL 8000 UNITS/ML ORAL SOLUTION, 60 ML BOTTLE GT SCH (09:00)
--- NOTE | 2020-03-27 09:00 | NUR ---
At 0832, blood pressure result 82/46. MD De La O present, stated to give 500 ml normal saline bolus and initiate levophed order. MD De La O stated will put levophed order. Decreased propofol to 35 mcg.
[2020-03-27] MEDS: NOREPINEPHRINE BITARTRATE 8 MG in NS 242 ML IV PRN (09:09)
[2020-03-27] MEDS ORDERED: NOREPINEPHRINE 4 MG/4 ML VIAL IV ONE (09:21)
[2020-03-27] MEDS ORDERED: NS 500 ML IV ONE (10:00)
[2020-03-27] MEDS ORDERED: NOREPINEPHRINE BITARTRATE 4 MG in D5W 246 ML IV PRN (10:00)
[2020-03-27] MEDS ORDERED: KCL 40 mEq in 100 mL (PREMIX) 100 ML IV ONE (11:00)
--- NOTE | 2020-03-27 11:00 | NUR ---
RT requested to inform MD Jones and report arterial blood gas report collected at 1024 same day. MD Jones paged.
--- NOTE | 2020-03-27 11:10 | NUR ---
MD Jones called back, informed ABG results. New order of 1 ampule sodium bicarb IVP and for FI02 to remain at 80%. Orders placed and carried out.
[2020-03-27] MEDS ORDERED: SODIUM BICARBONATE 8.4% JECT 50 MEQ/50 ML SYRINGE IVP ONE (11:45)
[2020-03-27] MEDS: PROPOFOL DRIP 100 ML IV PRN ×2 (12:08→19:09)
[2020-03-27] MEDS: HEPARIN 25,000 UNITS in 250 ML PREMIX IV PRN (12:10)
--- NOTE | 2020-03-27 14:08 | NUR ---
Nutrition F/U RD reviewed pt's current EMR including diet Hx, physician notes, nursing notes, pertinent labs/meds/procedures, care trends and care activity. Current Diet Order/Nutrition Support: Vital AF 1.2 at 45ml/hr. Prosource BID, Prosource daily, Freee Water Flush 50ml Q4H via NGT Subjective information: RD received Nutrition Consult for low liz scale 5/16. Pt remains on isolation. Per EMR review, pt is oraly intubated, on diprivan. RD s/w the only available RN at the time of RD phone call, and she reported that pt is tolerating EN regimen, no residual this morning, but was unsure of how many time prosource is being provided. Pt will benefit from receiving prosource once a day as current EN regimen exceeds estimated calories and protein needs. (110-120%). Current % PO N/A on EN NEW Estimated Energy Expenditure (kcals/day) Temp: 36.67 degress Celsius; Ve: 11.7 1200 kcal/day (PSU 2003b fo acute state/vent) Estimated Protein Required (g/day) 40-74 g pro/day (0.8-1.5 g pro/kg CBW for acute renail failure, sepsis) Estimated Fluid Required (l/day) Per MD d/t pt's compromised renal function Problem/Etiology/Signs/Symptoms Inadequate energy intake r/t increased nutritional demands as evidenced by pt intubated, dx of sepsis, and current TF regimen not meeting estimated nutritional needs. (*improving) Altered nutrition-related labs r/t endocrine and renal dysfunction AEB elevated BG, POC BG, BUN and Cre lab values. (*new 03/27/2020) Expected Outcomes/Goals - Monitor pt's tolerance to EN regimen with goal of pt meeting at least 100% of estimated nutritional needs, labs trending WNL, normal GI function, skin integrity, and wt maintenance. Dietitian Recommendations * Recommend Angie AF 1.2 at 45ml/hr, Prosource daily, Free Water Flush 50cc Q4H via NGT Provides: 1356 kcals and 96 g protein and 1206ml free water daily. Meets: 113% of estimated calorie needs and 130% of upper end of estimated protein needs. Follow Up High Risk: F/U in 2-3days
[2020-03-27] MEDS: AZTREONAM 1 GM in NS 50 ML IV SCH ×2 (14:13→21:39)
--- NOTE | 2020-03-27 14:17 | NUR ---
Dietitian Recommendations * Recommend Angie AF 1.2 at 45ml/hr, Prosource daily, Free Water Flush 50cc Q4H via NGT Provides: 1356 kcals and 96 g protein and 1206ml free water daily. Meets: 113% of estimated calorie needs and 130% of upper end of estimated protein needs. Please see Nutrition F/U note for details. HALFWAY, RD
--- NOTE | 2020-03-27 14:20 | NUR ---
WOUND EVALUATION: Wound Consult received from Dr. Escamilla. Thank you, Dr. Escamilla, for the consult. Patient received in a [place] Bed with an IsoFlex CHELSEY mattress with low air loss therapy initiated, sedated, on Levophed and Heparin drips. Patient is unable to turn in bed independently. Farzad Score is a 13. Past Medical History: COPD, Paranoid Schizophrenia, Hyperlipidemia, Dementia, Gastritis, Osteoporosis. Recent Labs: WBC 18.9, RBC 2.44, hemoglobin 8.0, hematocrit 25.2, sodium chloride 112, BUN 58, creatinine 1.28, glucose 252, calcium 7.3, albumin 2.3, PTT 54.7. Microbiology: Blood culture results x2 in progress. MRSA screen results negative. Endotracheal sputum culture results positive for Haemophilus influenza. Intrinsic factors that delay wound healing: COPD, Hypoalbuminemia. Extrinsic factors that delay wound healing: Immobility. Wound Assessment: 1. Mid Posterior Trunk: sDTI, present on admission. Site has a vertical linear area with 50% dark discoloration, 40% red discoloration, 10% open areas with pink tissue. No odor, no drainage. Site measures 10.5 cm x 4.0 cm. Recommend: Cleanse open areas with normal saline. Gently pat dry. Apply Calmoseptine cream to open areas. Cover with non-adhesive foam dressing and secure with transparent dressings. Perform site care daily, and as needed for dressing soiling or dislodgement. 2. Left Mid Posterior Trunk: sDTI, present on admission. Site has a horizontal linear area of purple discoloration. No odor, no drainage. Site measures 1.8 cm x 8.0 cm. Recommend: Cover with non-adhesive foam dressing and secure with transparent dressings. Perform site care daily, and as needed for dressing soiling or dislodgement. 3. Right buttock: IAD with moisture associated skin damage, present on admission. Multiple open area hav 100% pink tissue. No odor, no drainage. Periwounds intact. Surrounding tissue has blanchable red erythema. Entire site measures 1.5 cm x 1.5 cm. 4. Gluteal cleft: Intertrigo, present on admission. Site has 100% pink tissue. No odor, no drainage. Periwound intact. Surrounding tissue has blanchable red erythema. Wound measures 1.0 cm x 0.2 cm. Recommend: Cleanse the involved areas with mild soap and water. Pat dry. Apply Calmoseptine cream to involved areas. Cover with sacral foam dressing. Perform site care daily, and as needed for dressing soiling or dislodgment. Also recommend: Reposition patient every 2 hours with pillow support and off-load pressure areas with pillows for pressure re-distribution. Offload, elevate and float bilateral heels with pillows. Perform skin care and monitor skin integrity Q shift. Use moisture barrier cream on buttocks and other moisture susceptible areas QID and as needed for soiling. Main patient on a low air-loss mattress. Addendum: 03/27/20 at 1623 by Randy Alvarez RN Addendum: Turn patient side to side only every 2 hours with one pillow underneath trunk and one pillow underneath pelvis, placing pillows deep underneath the patient. Elevate heels with one pillow lengthwise under each extremity at all times.
[2020-03-27] MEDS ORDERED: MENTHOL/ZINC OXIDE 113 GM OINT. TP PRN (16:30)
--- NOTE | 2020-03-27 19:20 | NUR ---
Endorsed patient and gave report to NOC shift nurse. Patient in no acute distress. Side rails x 3. Call light with in reach.
--- NOTE | 2020-03-27 20:00 | NUR ---
LETHARGIC. ORALLY INTUBATED. SUCTIONED WITH MODERATE WHITE THIN MUCUS OBTAINED. ORAL CARE GIVEN. ON OGT FEEDING WITH VITAL AF 1.2 @ 45CC/HR. RESIDUAL CHECK 0. OGT FLUSHED WITH 50CC H20. GERSON PICC LINE DRSG D/I. ON DIPRIVAN DRIP AT 35 MCG/KG/MIN., DECREASED TO 30 MCG/MIN. ON HEPARIN DRIP AT 500 UNITS/HR. ON LEVOPHED DRIP AT 6 MCG/MIN. BP 89/35. LEVOPHED INCREASED TO 8 MCG/MIN. GEORGE CATH PATENT DRAINING CLEAR TALI URINE TO GRAVITY. SINUS RHYTHM.
[2020-03-27] MEDS: FAMOTIDINE PF 20 MG/2 ML VIAL IVP SCH (21:25)
--- NOTE | 2020-03-27 22:00 | NUR ---
SUCTIONED. TURNED. HS CARE GIVEN.
--- NOTE | 2020-03-27 23:00 | NUR ---
ACCU-CHEK 112, NO INSULIN DUE PER SLIDING SCALE COV.
[2020-03-28] VITALS (36 sets, daily range): BP systolic 102–146
--- NOTE | 2020-03-28 | NUR ---
SUCTIONED. ORAL CARE GIVEN. REPOSITIONED. RESIDUAL CHECK 0. OGT FLUSHED WITH 50CC H2O.
--- NOTE | 2020-03-28 03:00 | NUR ---
ACCU-CHEK 139, NO INSULIN DUE PER SLIDING SCALE COV.
--- NOTE | 2020-03-28 04:00 | NUR ---
SUCTIONED. TURNED. ORAL CARE GIVEN. RESIDUAL CHECK 0. OGT FLUSHED WITH 50CC H2O.
[2020-03-28] MEDS: 0.45% NACL 1,000 ML IV SCH (04:33)
[2020-03-28] MEDS: CEFEPIME 1 GM in D5W 50 ML IV SCH (05:30)
[2020-03-28] MEDS: AZTREONAM 1 GM in NS 50 ML IV SCH ×3 (06:00→22:14)
[2020-03-28] MEDS: AMIODARONE HCL 200 MG TABLET NG SCH (06:00)
[2020-03-28] MEDS: methylPREDNISolone SOD SUCC/PF 62.5 MG/ML VIAL IVP SCH ×3 (06:00→22:15)
--- NOTE | 2020-03-28 06:00 | NUR ---
ONE LARGE WATERY GREENISH BROWN STOOL DEFECATED. CLEANED. VIVIAN-CARE, BACK CARE, GEORGE CARE, SKIN CARE GIVEN. PARTIAL LINEN CHANGE. DOES NOT ASSIST WITH TURNING. TOLERATED PROCEDURE WELL. ACCU-CHEK 172, 2 UNITS HUMALOG INSULIN SQ GIVEN. UO ADEQUATE. REMAINS IN GUARDED CONDITION.
[2020-03-28] MEDS: INSULIN LISPRO SLIDING SCALE 100 UNITS/ML VIAL (humaLOG) SUBCUT PRN ×5 (06:30→23:21)
[2020-03-28 06:50] LABS: ALBUMIN 1.4 g/dL (3.4-4.8); ANION GAP 6 (5-15); CHLORIDE 112 mmol/L (98-107); CREATININE 1.35 mg/dL (0.55-1.30); GLUCOSE 182 mg/dL (70-99); POTASSIUM 4.9 mmol/L (3.5-5.1); SODIUM SERUM 137 mmol/L (136-145); UREA NITROGEN, BLOOD 72 mg/dL (8-21)
[2020-03-28 07:00] LABS: CALCIUM 6.8 mg/dL (8.4-11.0)
--- NOTE | 2020-03-28 07:15 | NUR ---
CALCIUM LEVEL OF 6.8 ENDORSED TO AM RUPALI LEE RN.
[2020-03-28 07:21] LABS: ALANINE AMINOTRANSFERASE 44 U/L (12-78); ASPARTATE AMINOTRANSFERASE 40 U/L (10-37); TOTAL BILIRUBIN 0.4 mg/dL (0.0-1.0)
[2020-03-28 08:08] LABS: MEAN CORPUSCULAR HEMOGLOBIN 32 pg (27-31); MEAN CORPUSCULAR HGB CONC 31 % (32-36); MEAN CORPUSCULAR VOLUME 101 fL (79.0-98.0); PLATELET COUNT (AUTO) 182 K/uL (130-430); RED CELL DISTRIBUTION WIDTH 15.2 % (9.0-15.0); WHITE BLOOD COUNT (AUTO) 22.1 K/uL (4.8-10.8)
--- NOTE | 2020-03-28 08:46 | NUR ---
Dr. De La O in to see patient. New orders received.
[2020-03-28 08:50] LABS: HEMATOCRIT 19.3 % (36-48); RED BLOOD CELL COUNT(AUTO) 1.91 MIL/uL (4.2-6.2)
[2020-03-28] MEDS ORDERED: CALCIUM GLUCONATE 2 GM in NS 100 ML IV ONE (09:00)
--- NOTE | 2020-03-28 09:02 | NUR ---
Dr. Zimmerman in to see patient. Made aware of Calcium 6.8. New orders received.
[2020-03-28] MEDS: PANTOPRAZOLE SODIUM 40 MG/VIAL (PROTONIX) IVP SCH (09:25)
[2020-03-28] MEDS: ERGOCALCIFEROL 8000 UNITS/ML ORAL SOLUTION, 60 ML BOTTLE GT SCH (09:25)
[2020-03-28] MEDS: DOXYCYCLINE HYCLATE 100 MG in D5W 100 ML IV SCH ×2 (09:25→22:14)
[2020-03-28] MEDS: LINEZOLID 300 ML IV SCH ×2 (09:25→22:15)
[2020-03-28] MEDS: ASCORBIC ACID 500 MG TABLET PO SCH (09:26)
[2020-03-28] MEDS: INSULIN NPH 100 UNITS/ML 10 ML VIAL SUBCUT SCH ×2 (09:29→22:18)
[2020-03-28] MEDS: CALCIUM CARBONATE 500 MG/ TAB.CHEW NG SCH ×2 (10:33→22:19)
--- NOTE | 2020-03-28 11:07 | NUR ---
Witnessed heparin drip titration to 700 units/hr.
[2020-03-28 11:25] LABS: BAND % (MANUAL) 6 % (0-6); LYMPHOCYTES % (MANUAL) 1 % (20-46); MONOCYTES % (MANUAL) 3 % (0-11)
[2020-03-28 11:26] LABS: BASOPHILS % (MANUAL) 0 % (0-2); EOSINOPHILS % (MANUAL) 0 % (0-7); METAMYELOCYTES % 1 % (0-0); MYELOCYTES % 3 % (0-0)
--- NOTE | 2020-03-28 11:40 | NUR ---
Spoke with Dr. Escamilla regarding patient's hemoglobin and hematocrit. New orders received.
--- NOTE | 2020-03-28 12:15 | NUR ---
CONSULT GI CONSULTING MD: DR. CANALES SPOKE TO: PURNIMA DIALED: [phone]: DR. MONTERO
--- NOTE | 2020-03-28 12:18 | NUR ---
CONSULT HEMATOLOGY CONSULTING MD: DR. RAMOS SPOKE TO: ANNY DIALED: [phone]: DR. MONTERO
[2020-03-28] MEDS: PROPOFOL DRIP 100 ML IV PRN ×2 (15:04→22:17)
--- NOTE | 2020-03-28 15:15 | NUR ---
Dr. Urbina in to see patient. New orders received.
--- NOTE | 2020-03-28 15:53 | NUR ---
RT NOTES- 50%FIO2 TITRATED FIO2 TO 50% AT THIS TIME. KEEPING SPO2 92-94%. KASANDRA LEE MADE AWARE.
--- NOTE | 2020-03-28 18:22 | NUR ---
Spoke with Dr. Galeano regarding patient status. Per Dr. Galeano, hold Heparin Drip for 12 hours and restart at 0700 tomorrow morning and start patient on Protonix Drip.
--- NOTE | 2020-03-28 18:48 | NUR ---
BT INITIATION:1st Unit Consent signed per patient's niece agreeing to administration of blood. Blood has been type and crossmatched. Blood sent from blood bank. Information on unit of blood checked against patient wristband at bedside by two nurses. All information matches. Patient or responsible republican informed of potential complications associated with blood transfusion. Informed of possible transfusion reaction symptoms. Aware of need to notify nurse at once of itching, shortness of breath, flushing, feeling of impending doom, or other symptoms not previously present. Vital signs taken within 5 minutes prior to initiation of transfusion: HR 86, RR 27, SpO2 93%, BP 124/51, and Temperature 97.0. RN will remain with patient for first 15 minutes of transfusion at which time vital signs will be re-assessed.
--- NOTE | 2020-03-28 19:20 | NUR ---
Closing Note Patient resting in bed, receiving 1st unit of blood transfusion. No signs or symptoms of acute distress noted. Endorsed bedside report to oncoming RN using SBAR approach for continuation of care.
--- NOTE | 2020-03-28 20:25 | NUR ---
Opening Note Pt in bed, sedated w/ Propofol. NSR on the monitor, BP stable, w/ Levophed infusing. ETT in place, PC, rate 18/350/50%/+10. Pt tolerating well, Saturation in the mid 90s, respirations in the mid 20s. Pt has 1u PRBC infusing, no s/s of reactions noted, VSS, afebrile. Rivera catheter in place drainnig urine to gravity, OG tube in place running TF, minimal residual noted. Will continue to monitor.
[2020-03-28] MEDS ORDERED: AMIODARONE HCL 200 MG TABLET NG SCH (21:00)
[2020-03-28] MEDS ORDERED: PANTOPRAZOLE SODIUM 40 MG/VIAL (PROTONIX) ONE (21:59)
--- NOTE | 2020-03-28 22:10 | NUR ---
BT INITIATION: Consent obtained per Pt family agreeing to administration of blood. Blood has been type and crossmatched. Blood sent from blood bank. Information on unit of blood checked against patient wristband at bedside by two nurses. All information matches. Patient or responsible democrat informed of potential complications associated with blood transfusion. Informed of possible transfusion reaction symptoms. Aware of need to notify nurse at once of itching, shortness of breath, flushing, feeling of impending doom, or other symptoms not previously present. Vital signs taken within 5 minutes prior to initiation of transfusion. RN will remain with patient for first 15 minutes of transfusion at which time vital signs will be re-assessed.
[2020-03-28] MEDS: PANTOPRAZOLE SODIUM 40 MG in NS 50 ML IV SCH (22:14)
[2020-03-28] MEDS: FAMOTIDINE PF 20 MG/2 ML VIAL IVP SCH (22:16)
--- NOTE | 2020-03-28 22:57 | NUR ---
PAGED DR. MCCORMICK [phone]
--- NOTE | 2020-03-28 23:10 | NUR ---
MD Called Spoke w/ Dr. De La O, updated on Pt chagne to A-fib w/ RVR, rate in the 140-160s. Notified blood transfusion was stopped and line flushed. New MD orders noted, and per Dr. De La O, ok to continue running blood, says Pt was in A-fib prior, and was most likely not due to blood transfusion.
[2020-03-28] MEDS ORDERED: AMIODARONE HCL 150 MG in D5W 100 ML IV ONE (23:15)
[2020-03-28] MEDS ORDERED: AMIODARONE HCL 150 MG/3ML VIAL ONE (23:29)
[2020-03-29] VITALS (33 sets, daily range): BP systolic 84–136
--- NOTE | 2020-03-29 00:45 | NUR ---
BT Tranfusion Complete Blood transfusion complete. Pt tolerated well. HR remains A-fib, but Pt asymptomatic. BP stable, A-febrile. No flushing, redness noted. Will continue to monitor.
--- NOTE | 2020-03-29 03:30 | NUR ---
Pt Round Pt HR remains increased, FIO2 increased to 60% for tachypnea and slight O2 desaturation. Flexiseal and liang draining to gravity. Restraints in place, no skin breakdown noted. Will continue to monitor.
[2020-03-29] MEDS: PANTOPRAZOLE SODIUM 40 MG in NS 50 ML IV SCH ×5 (03:49→20:58)
[2020-03-29] MEDS: 0.45% NACL 1,000 ML IV SCH (03:50)
[2020-03-29] MEDS: INSULIN LISPRO SLIDING SCALE 100 UNITS/ML VIAL (humaLOG) SUBCUT PRN ×4 (03:54→14:50)
[2020-03-29] MEDS: CEFEPIME 1 GM in D5W 50 ML IV SCH (04:44)
--- NOTE | 2020-03-29 05:13 | NUR ---
PAGED DR. LOAIZA PAGER # [phone]
--- NOTE | 2020-03-29 05:43 | NUR ---
PAGED DR. LOAIZA PAGER # [phone]
--- NOTE | 2020-03-29 05:50 | NUR ---
MD Called Spoke w/ Dr. Law regarding Pt worsening status and ABG. New orders received, will carry out as ordered.
[2020-03-29] MEDS ORDERED: SODIUM BICARBONATE 8.4% JECT 50 MEQ/50 ML SYRINGE IVP ONE (06:00)
[2020-03-29] MEDS: AZTREONAM 1 GM in NS 50 ML IV SCH ×2 (06:40→14:04)
[2020-03-29] MEDS: methylPREDNISolone SOD SUCC/PF 62.5 MG/ML VIAL IVP SCH ×2 (06:40→14:03)
[2020-03-29] MEDS ORDERED: SODIUM BICARBONATE 8.4% JECT 50 MEQ/50 ML SYRINGE ONE (06:45)
--- NOTE | 2020-03-29 06:45 | NUR ---
Closing Note Pt remains sedated, Propofol @35mcg/kg/min. FIO2 increased to 70%, and PEEP increased to 12. Pt saturating in the low 90s. 1 Amp of bicarb given post ABG results. HR remains elevated, A-fib, rate in the 120-140s. MD aware. Levophed and Protonix Drip infusing in GERSON PICC. SIte C/D/I. Pt tolerating TF through OG tube. Pt liang catheter and flexiseal draining to gravity. Restraints in place, no skin breakdown noted. Will endorse to oncoming RN.
[2020-03-29 07:13] LABS: BASOPHILS % (AUTO) 0.1 % (0.0-2.0); HEMATOCRIT 28.3 % (36-48); HEMOGLOBIN 9.3 g/dL (12.0-16.0); MEAN CORPUSCULAR HEMOGLOBIN 31 pg (27-31); MEAN CORPUSCULAR HGB CONC 33 % (32-36); MEAN CORPUSCULAR VOLUME 93 fL (79.0-98.0); MONOCYTES # (AUTO) 0.5 K/uL (0.0-1.0); NEUTROPHILS # (AUTO) 23.7 K/uL (1.8-7.7); NEUTROPHILS % (AUTO) 93.9 % (40.0-70.0); PLATELET COUNT (AUTO) 153 K/uL (130-430); RED BLOOD CELL COUNT(AUTO) 3.03 MIL/uL (4.2-6.2); RED CELL DISTRIBUTION WIDTH 16.3 % (9.0-15.0); WHITE BLOOD COUNT (AUTO) 25.2 K/uL (4.8-10.8)
--- NOTE | 2020-03-29 07:15 | NUR ---
Endorsement Report given to oncoming RN at bedside via SBAR approach.
--- NOTE | 2020-03-29 07:45 | NUR ---
Dr. Tobar in to see patient. New orders received.
[2020-03-29 08:02] LABS: ALANINE AMINOTRANSFERASE 39 U/L (12-78); ALBUMIN 1.3 g/dL (3.4-4.8); ANION GAP 12 (5-15); ASPARTATE AMINOTRANSFERASE 37 U/L (10-37); CALCIUM 7.1 mg/dL (8.4-11.0); CHLORIDE 110 mmol/L (98-107); CREATININE 1.56 mg/dL (0.55-1.30); GLUCOSE 194 mg/dL (70-99); POTASSIUM 4.4 mmol/L (3.5-5.1); SODIUM SERUM 139 mmol/L (136-145); TOTAL BILIRUBIN 0.5 mg/dL (0.0-1.0); UREA NITROGEN, BLOOD 88 mg/dL (8-21)
--- NOTE | 2020-03-29 08:30 | NUR ---
Dr. De La O in to see patient. New orders received.
--- NOTE | 2020-03-29 08:40 | NUR ---
Dr. Galeano in to see patient. New orders received.
[2020-03-29] MEDS ORDERED: AMIODARONE HCL 150 MG in D5W 100 ML IV ONE (09:00)
[2020-03-29 09:08] LABS: PROTHROMBIN TIME 8.9 SECS (9.5-12.5)
[2020-03-29 09:09] LABS: INR 0.9 (0.8-1.2)
[2020-03-29] MEDS: ENOXAPARIN SODIUM 30 MG/0.3 ML SYRINGE SUBCUT SCH (09:14)
[2020-03-29] MEDS: CALCIUM CARBONATE 500 MG/ TAB.CHEW NG SCH ×2 (09:15→21:04)
[2020-03-29] MEDS: INSULIN NPH 100 UNITS/ML 10 ML VIAL SUBCUT SCH ×2 (09:15→21:05)
[2020-03-29] MEDS: ASCORBIC ACID 500 MG TABLET PO SCH (09:16)
[2020-03-29] MEDS: LINEZOLID 300 ML IV SCH ×2 (09:16→21:00)
[2020-03-29] MEDS: ERGOCALCIFEROL 8000 UNITS/ML ORAL SOLUTION, 60 ML BOTTLE GT SCH (09:16)
[2020-03-29] MEDS: DOXYCYCLINE HYCLATE 100 MG in D5W 100 ML IV SCH ×2 (09:17→20:59)
[2020-03-29] MEDS: AMIODARONE HCL 200 MG TABLET NG SCH ×3 (09:18→21:04)
[2020-03-29] MEDS ORDERED: FUROSEMIDE 40 MG/4 ML VIAL IVP ONE (10:15)
--- NOTE | 2020-03-29 10:16 | NUR ---
Dr. Urbina at bedside examining patient. New orders received.
[2020-03-29] MEDS: PROPOFOL DRIP 100 ML IV PRN (10:37)
[2020-03-29] MEDS: MORPHINE I.V. DRIP 100 ML IV PRN (15:46)
--- NOTE | 2020-03-29 15:46 | NUR ---
Morphine Drip initiated per protocol and Dr. Carlitos enriquez.
--- NOTE | 2020-03-29 19:07 | NUR ---
Closing Note Patient resting in bed, no signs or symptoms of acute distress noted. Fall and safety precautions in place. Endorsed bedside report to oncoming RN using SBAR approach for continuation of care.
--- NOTE | 2020-03-29 19:20 | NUR ---
PM SHIFT ASSESSMENT Pt is obtunded. AFIB with RVR. Current tolerating vent settings. Rivera cath in place, draining to gravity. IV drips infusing. Flexi seal draining to gravity. Safety precautions in place, call light within reach. Will continue to monitor.
[2020-03-29] MEDS: FUROSEMIDE 40 MG/4 ML VIAL IVP SCH (21:02)
[2020-03-29] MEDS: FAMOTIDINE PF 20 MG/2 ML VIAL IVP SCH (21:03)
[2020-03-30] VITALS (29 sets, daily range): BP systolic 85–126
[2020-03-30] MEDS: methylPREDNISolone SOD SUCC/PF 62.5 MG/ML VIAL IVP SCH ×3 (00:03→14:00)
[2020-03-30] MEDS: AZTREONAM 1 GM in NS 50 ML IV SCH ×3 (00:03→14:00)
[2020-03-30] MEDS: INSULIN LISPRO SLIDING SCALE 100 UNITS/ML VIAL (humaLOG) SUBCUT PRN (00:37)
[2020-03-30] MEDS: PANTOPRAZOLE SODIUM 40 MG in NS 50 ML IV SCH ×4 (01:52→17:00)
[2020-03-30] MEDS: PROPOFOL DRIP 100 ML IV PRN ×2 (01:54→05:25)
[2020-03-30 06:15] LABS: FOLATE (FOLIC ACID) 3.4 ng/mL (>3.0)
[2020-03-30] MEDS: NOREPINEPHRINE BITARTRATE 8 MG in NS 242 ML IV PRN (06:55)
--- NOTE | 2020-03-30 07:25 | NUR ---
ENDORSEMENT PT CARE ENDORSED TO GAGANDEEP SLAUGHTER USING NURSING SBAR.
--- NOTE | 2020-03-30 07:40 | NUR ---
Opening Notes Patient received in bed at this time currently being sedated, with no signs of distress noted. Patient on air sampling and monitoring with a-fib. Patient intubated and on mechanical ventilator with settings PRVC 18, TV 350, FiO2 70%, PEEP 12. Patient with GERSON PICC receiving multiple drips. Patient with OGT receiving tubefeeding. Patient has a liang catheter draining yellow urine. Safety and isolation precautions enforced.
--- NOTE | 2020-03-30 08:59 | NUR ---
Received call from Nephew Minesh Mariscal who requested to make her aunt DNR. Requested for her aunt to be removed from the ventilator. Explained that she will be made DNR and will discuss request with MD Escamilla.
[2020-03-30] MEDS: LINEZOLID 300 ML IV SCH (09:00)
[2020-03-30] MEDS: ERGOCALCIFEROL 8000 UNITS/ML ORAL SOLUTION, 60 ML BOTTLE GT SCH (09:02)
[2020-03-30] MEDS: DOXYCYCLINE HYCLATE 100 MG in D5W 100 ML IV SCH (09:03)
[2020-03-30] MEDS: ASCORBIC ACID 500 MG TABLET PO SCH (09:04)
[2020-03-30] MEDS: CALCIUM CARBONATE 500 MG/ TAB.CHEW NG SCH (09:05)
[2020-03-30] MEDS: FUROSEMIDE 40 MG/4 ML VIAL IVP SCH (09:06)
[2020-03-30] MEDS: AMIODARONE HCL 200 MG TABLET NG SCH ×2 (09:08→15:00)
[2020-03-30] MEDS: INSULIN NPH 100 UNITS/ML 10 ML VIAL SUBCUT SCH (09:10)
[2020-03-30] MEDS: ENOXAPARIN SODIUM 30 MG/0.3 ML SYRINGE SUBCUT SCH (09:11)
--- NOTE | 2020-03-30 12:05 | NUR ---
PAGED PAGED NANCY SUAZO AT [phone] SPOKE WITH ANNY.
--- NOTE | 2020-03-30 12:45 | NUR ---
2ND PAGE OUT TO PAGENANCY HERNANDEZ AT [phone] SPOKE WITH GAVINO.
--- NOTE | 2020-03-30 12:53 | NUR ---
Spoke with Dr. Escamilla who requested for me to confirm if the nephew or niece are legal DPOA and to coordinate with social sciences department chair. Also regarding the family's request for removing patient from ventilator, requested for Dr. Jones to determine the next appropriate step. Called social sciences department chair and spoke to Vesta who will follow up with viviana beck and family for legal documentation on DPOA.
--- NOTE | 2020-03-30 13:01 | NUR ---
Spoke to Dr. Israel and explained family's wish to remove from the ventilator. Received orders for extubation and removal of ventilator and place pt on nasal cannula and morphine drip to start at 2mg/hr and up to 20 mg/hr.
--- NOTE | 2020-03-30 13:50 | NUR ---
RT NOTES Per RN's conversation with soc. worker, hold-off on extubation. RN to call RT when to carry out order.
--- NOTE | 2020-03-30 13:56 | NUR ---
Social Service Note: CONTRACTING MANAGER spoke to Minesh Mariscal (pt's ffrsoi-[phone]) and Zoila Latasha (pt's oobea-[phone]) who confirmed that their wishes are to remove pt's ventilator and allow pt to pass comfortably. CONTRACTING MANAGER provided emotional support. Minesh confirmed that there is no formal advanced directive but that they have been involved in pt's care for many years and attended the interdisciplinary meetings at [facility]. CONTRACTING MANAGER confirmed with [facility] that there is no advanced directive but that Minesh and Zoila were active in participating in pt's care. CONTRACTING MANAGER has updated pt's nurse. Minesh also stated that mortuary arrangements have been made with [facility] in [place] ([phone]. CONTRACTING MANAGER will remain available for support and will follow up as needed.
--- NOTE | 2020-03-30 14:18 | NUR ---
Nutrition F/U RD reviewed pt's current EMR including diet Hx, physician notes, nursing notes, pertinent labs/meds/procedures, care trends and care activity. Medical History Comment: Pt has been found w/ septic shock, possible COVID-19 infection, RUIZ associated with dehydration, and severe protein malnutrition per physician notes. Pts family is considering withdrawing care since prognosis is very poor per physician notes. Current Diet Order/Nutrition Support: Jevity 1.5 at 45cc/hr, Prosource BID, Free Water Flush 50ml Q4H via NGT TF regimen provides: 1820kcal, 99gPro, 1121ml of total fluids. Meets: 152%kcal and 134%protein upper end of kcal and protein estimated nutrition needs, respectively. Subjective information: Per RN notes, family wishes to have pt pass comfortably. Pt will be extubated, placed on nasal cannula and will remain on a Morphine drip. Current diet regimen remains appropriate at this time. NEW Estimated Energy Expenditure (kcals/day) Temp: 36.67 degress Celsius; Ve: 11.7 1200 kcal/day (PSU 2003b fo acute state/vent) Estimated Protein Required (g/day) 40-74 g pro/day (0.8-1.5 g pro/kg CBW for acute renail failure, sepsis) Estimated Fluid Required (l/day) Per MD d/t pt's compromised renal function Problem/Etiology/Signs/Symptoms Inadequate energy intake r/t increased nutritional demands as evidenced by pt intubated, dx of sepsis, and current TF regimen not meeting estimated Nutritional needs. (*improving) Altered nutrition-related labs r/t endocrine and renal dysfunction AEB elevated BG, POC BG, BUN and Cre lab values. (*new 03/27/2020) Expected Outcomes/Goals - Monitor pt's tolerance to EN regimen with goal of pt meeting at least 100% of estimated nutritional needs, labs trending WNL, normal GI function, skin integrity, and wt maintenance. Dietitian Recommendations * Continue Jevity 1.5 at 45cc/hr, Prosource BID, Free Water Flush 50ml Q4H via NGT * TF regimen provides: 1820kcal, 99gPro, 1121ml of total fluids. * Meets: 152%kcal and 134%protein upper end of kcal and protein estimated nutrition needs, respectively. Follow Up Moderate Risk: 3-5 days
--- NOTE | 2020-03-30 14:19 | NUR ---
Dietitian Recommendations * Continue Jevity 1.5 at 45cc/hr, Prosource BID, Free Water Flush 50ml Q4H via NGT * TF regimen provides: 1820kcal, 99gPro, 1121ml of total fluids. * Meets: 152%kcal and 134%protein upper end of kcal and protein estimated nutrition needs, respectively. Please see Nutrition Follow Up for further details. LT, RD
--- NOTE | 2020-03-30 14:49 | NUR ---
Extubation Patient extubated per MD order at this time. Patient on morphine drip and titrated as needed.
--- NOTE | 2020-03-30 14:49 | NUR ---
RT NOTES Per doctor's order, pt. was extubated and placed on 3L NC for comfort. Pt was sxn via ETT and orally before cuff deflation.
[2020-03-30] MEDS: MORPHINE I.V. DRIP 100 ML IV PRN (14:59)
--- NOTE | 2020-03-30 17:45 | NUR ---
PAGED PAGED NANCY SUAZO AT [phone] SPOKE WITH WILLY.
--- NOTE | 2020-03-30 18:40 | NUR ---
PAGED DR. MONTERO FOR ORDERS DIALED: [phone] SPOKE TO:KVNG
--- NOTE | 2020-03-30 18:50 | NUR ---
Received call from Dr. Escamilla. Received orders for transfer to Tele. Also requested for patient to have opportunity to face time.
--- NOTE | 2020-03-30 19:35 | NUR ---
Received report from AM nurse using SBAR approach.
--- NOTE | 2020-03-30 19:38 | NUR ---
Closing Notes Patient endorsed to civil laboratory technician RN using SBAR format. No signs of distress noted.
--- NOTE | 2020-03-30 20:29 | NUR ---
PAGED DR. ERICKSON FOR ORDERS DIALED: [phone] SPOKE TO: AUTOMATED EXCHANGE
[2020-03-30] MEDS ORDERED: COMMUNICATION ORDER XX ONE (20:45)
--- NOTE | 2020-03-30 22:40 | NUR ---
PT TRANSFERRED TO TELEMETRY Transferred with another RN present. Report given to Nicol at 2240. Gave report to nurse using sbar approach. Patient on 3L of O2 by nasal cannula. Morphine drip running at 5mg/ hr. All belongings sent with patient. Patient had no signs or symtpoms of distress. Bed locked in lowest position and safety protocols in place.
--- NOTE | 2020-03-30 23:00 | NUR ---
TRANSFER OF CARE RECEIVE REPORT FROM ICU NURSE. PATIENT ON DNR STATUS, FOR COMFORT MEASURE AT THIS TIME PER RN. MORPHINE DRIP RUNNING AT 5ML. PATIENT AOX0. UNRESPONSIVE. AGONAL BREATHING NOTED. PATIENT ON 3L OF OXYGEN VIA NASAL CANULA, ATTACHED AND SECURED. OXYGEN SATURATION OF 77%. GEORGE CATHETER, ATTACHED AND SECURED, URINE OUTPUT OF 10ML NOTED. RECTAL TUBE, ATTACHED AND DRAINING BY GRAVITY. SAFETY PRECAUTIONS IN PLACE. ON ISOLATION PRECAUTION. WILL CONTINUE TO MONITOR AND GIVE COMFORT TO PATIENT.
[2020-03-31] VITALS: BP_SYST 102
--- NOTE | 2020-03-31 02:26 | NUR ---
RN ROUNDS PATIENT ON AGONAL BREATHING, ON 3L OF OXYGEN VIA NASAL CANULA ATTACHED AND SECURED. O2 SATURATION OF 77% TAKEN VIA EARLOBE. GEORGE CATHETER DRAINING BY GRAVITY. RECTAL TUBE, DRAINAGE NOTED. NO SIGNS OF DISCOMFORT NOTED. MORPHINE DRIP CONTINUOS RUNNING AT 5ML. SAFETY PRECAUTIONS IN PLACE. WILL CONTINUE TO MONITOR PATIENT
--- NOTE | 2020-03-31 04:15 | NUR ---
RN ROUNDS PATIENT EYES CLOSE, UNRESPONSIVE. ON AGONAL BREATHING, ON 3L OF OXYGEN VIA NASAL CANULA ATTACHED AND SECURED. PATIENT ON DNR AND COMFORT MEASURE, O2 SATURATION OF 77% TAKEN VIA EARLOBE. GEORGE CATHETER DRAINING BY GRAVITY. RECTAL TUBE, DRAINAGE NOTED. NO SIGNS OF DISCOMFORT NOTED. MORPHINE DRIP CONTINUOS RUNNING AT 5ML. SAFETY PRECAUTIONS IN PLACE. WILL CONTINUE TO MONITOR PATIENT
--- NOTE | 2020-03-31 06:59 | NUR ---
CLOSING NOTES PATIENT EYES CLOSE, UNRESPONSIVE. ON AGONAL BREATHING, ON 3L OF OXYGEN VIA NASAL CANULA ATTACHED AND SECURED. PATIENT ON DNR AND COMFORT MEASURE AT THIS TIME. O2 SATURATION OF 73% TAKEN VIA EARLOBE. ON CONTINUOUS TELEMONITOR, HEART RATE 108. GEORGE CATHETER DRAINING BY GRAVITY 50ML URINE OUTPUT NOTED. RECTAL TUBE, DRAINAGE NOTED. NO SIGNS OF DISCOMFORT NOTED. MORPHINE DRIP CONTINUOS RUNNING AT 5ML. SAFETY PRECAUTIONS IN PLACE. ALL NEEDS MET THROUGHOUT THE SHIFT. WILL CONTINUE TO MONITOR PATIENT UNTIL ENDORSE TO ONCOMING SHIFT NURSE FOR CONTINUITY OF CARE
--- NOTE | 2020-03-31 07:45 | NUR ---
INITIAL ROUNDS Received pt AAOx0, pt with agonal breathing, showing sinus tach on the monitor. Pt on Droplet Isolation precautions for Covid 19+. HOB elevated for aspiration precautions, Pt on Morphine drip infusing well to left hand at ordered rate with no s/s infiltration to site. Comfort measures in place-per Dr. Tobar do not do vital signs-let pt be comfortable.
--- NOTE | 2020-03-31 09:55 | NUR ---
PATIENT AT 0853 Pt at 0853, verified by 2 RNs, asystole on telemonitor, no pulse, no heart sounds, no breathing noted. Eyes closed, telemetry discontinued, oxygen removed. Pt covered with a sheet. Droplet Isolation precautions remain in place. esol teacher notified at 0958. Dr. Escamilla Notified at 0901 by esol teacher. Pt's nephew Blake Mariscal notified at 0906. [facility] called and informed spoke with Gail at 0913-spoke with Nellie at [facility] at 0933-pt declined, case # [id number]. [employer] called at 0941-spoke with Reporting Clerk Jones-not a service cashier's case. Admitting called and informed at 09-spoke with Esther. Linda SLAUGHTERdirector operating room informed at 0927. [facility] [place] called at 0944-they will pick patient up in 2-3 hours.
--- NOTE | 2020-03-31 11:25 | NUR ---
POST MORTEM CARE Post mortem care given to patient by this nurse and assisted by TOLL TICKET CLERK. Rivera discontinued, PICC line removed, cannela intact. Retal tube removed.
--- NOTE | 2020-03-31 12:15 | NUR ---
[facility] TECHNOLOGY APPLICATIONS ENGINEER Patient picked by [facility].
== END 2020-03-31 08:53 | disposition expired | DRG 720 ==
LOC: EEVIPCON 14:26 → SED 14:26 → SIC 19:33 → EEVIPCON 19:33 → SIC 20:15 → STU 03-30 22:42
PROVIDERS: ADMIT Internal Medicine Hospice and Palliative Medicine; ATTEND Internal Medicine Hospice and Palliative Medicine
PROC: 5A1955Z Respiratory Ventilation, Greater than 96 Consecutive Hours (ICD-10-PCS; 2020-03-22)
PROC: 0BH17EZ Insertion of Endotracheal Airway into Trachea, Via Natural or Artificial Opening (ICD-10-PCS; 2020-03-22)
PROC: 02HV33Z Insertion of Infusion Device into Superior Vena Cava, Percutaneous Approach (ICD-10-PCS; 2020-03-23)
PROC: B548ZZA Ultrasonography of Superior Vena Cava, Guidance (ICD-10-PCS; 2020-03-23)
PROC: 30233N1 Transfusion of Nonautologous Red Blood Cells into Peripheral Vein, Percutaneous Approach (ICD-10-PCS; principal; 2020-03-28)
DX: A41.9 Sepsis, unspecified organism (principal); U07.1 COVID-19; I21.A1 Myocardial infarction type 2; K72.00 Acute and subacute hepatic failure without coma; J96.21 Acute and chronic respiratory failure with hypoxia; E43 Unspecified severe protein-calorie malnutrition; N17.0 Acute kidney failure with tubular necrosis; J12.89 Other viral pneumonia; R65.21 Severe sepsis with septic shock; J15.9 Unspecified bacterial pneumonia; E87.4 Mixed disorder of acid-base balance; G93.41 Metabolic encephalopathy; D69.6 Thrombocytopenia, unspecified; I47.1 Supraventricular tachycardia; B96.3 Hemophilus influenzae [H. influenzae] as the cause of diseases classified elsewhere; E78.5 Hyperlipidemia, unspecified; E86.0 Dehydration; F03.90 Unspecified dementia, unspecified severity, without behavioral disturbance, psychotic disturbance, mood disturbance, and anxiety; F20.0 Paranoid schizophrenia; T38.0X5A Adverse effect of glucocorticoids and synthetic analogues, initial encounter; I48.91 Unspecified atrial fibrillation; J44.0 Chronic obstructive pulmonary disease with (acute) lower respiratory infection; R73.9 Hyperglycemia, unspecified; J44.1 Chronic obstructive pulmonary disease with (acute) exacerbation; E87.0 Hyperosmolality and hypernatremia; E83.51 Hypocalcemia; M41.9 Scoliosis, unspecified; K92.1 Melena; N18.9 Chronic kidney disease, unspecified; Z74.01 Bed confinement status; Z99.11 Dependence on respirator [ventilator] status; Z88.0 Allergy status to penicillin; Z68.1 Body mass index [BMI] 19.9 or less, adult
CPT/HCPCS: 36415; 36600; 71045; 80048; 80053; 82272; 82607; 82728; 82746; 82803-TC; 82962; 83010; 83605; 83615-TC; 83690-TC; 83735-TC; 83880; 84100-TC; 84443-TC; 84484; 85007; 85025; 85027; 85044-TC; 85379; 85384-TC; 85610-TC; 85730-TC; 86140; 86886; 86900; 86901; 86920; 87040-TC; 87070-TC; 87081; 87205-TC; 93005; 94002; 94003; 94640; 96365; 96366; 96368; 96375; 99285; A6209; C1751; C9113; G0378; J0282; J0456; J0610; J0692; J1644; J1650; J1815; J1940; J1956; J2020; J2270; J2704; J2930; J3490; J7030; J7040; J7050; J7060; J7613; P9021; P9046; U0002; U0003-CS